=== PATIENT | female | born 1995 | race African-American/Black ===

== ENCOUNTER → 2020-02-21 | Outpatient (CLI) | payer OTHER | LOC: COL.RAD 14:00 | DX: N97.1 Female infertility of tubal origin (principal) | CPT/HCPCS: Q9967 ==

== ENCOUNTER 2021-08-17 07:11 | Inpatient (IN) | payer OTHER ==
[2021-08-17] VITALS (40 sets, daily range): BP systolic 96–156; BP diastolic 52–77; PULSE 60–115; TEMP 97.7–98.6
[2021-08-17] MEDS ORDERED: PRENATAL TABLET PO (07:33)
[2021-08-17] MEDS ORDERED: PEPCID 20MG TAB20 MG PO (07:33)
[2021-08-17] MEDS ORDERED: TYLENOL 325MG325 MG PO (07:34)
[2021-08-17 09:41] LABS: BASO % 0.2 % (0.0-2.0); EOS % 0.1 % (0.0-4.0); GRAN # 10.3 K/mm3 (1.4-6.5); GRAN % 79.6 % (42.2-75.2); HEMOGLOBIN 12.6 g/dl (12.5-16.0); LYMPH # 1.6 K/mm3 (1.2-3.4); LYMPH % 12.2 % (20.0-51.0); MEAN CELL VOLUME 93 fl (80.0-100.0); MEAN CORPUSCULAR HEMOGLOBIN 33 pg (27-31); MEAN CORPUSCULAR HGB CONC 36 g/dl (33.0-37.0); MEAN PLATELET VOLUME 12.3 fl (7.4-10.4); MONO % 7.4 % (1.7-9.3); PLATELET COUNT 158 K/mm3 (130-400); RED BLOOD COUNT 3.83 M/mm3 (4.10-5.30); REDCELL DISTRIBUTION WIDTH-CV 13.3 % (11.5-14.5)
[2021-08-17 09:42] LABS: HEMATOCRIT 35.5 % (37.0-47.0)
[2021-08-18 01:15] VITALS: BP 98/46; PULSE 81; TEMP 98.8
[2021-08-18 08:00] VITALS: BP 96/48; PULSE 84; TEMP 97.8
[2021-08-18] MEDS ORDERED: IBU600 MG PO (09:01)
[2021-08-18 16:00] VITALS: BP 103/59; PULSE 91; TEMP 98.2
[2021-08-18 20:00] VITALS: BP 108/46; PULSE 78; TEMP 97.9
[2021-08-19 09:11] VITALS: BP 102/63; PULSE 78; TEMP 98.2
== END 2021-08-19 14:00 | disposition home or self-care (01) | DRG 807 ==
LOC: LDRO 07:11 → OB 09:00 → LDR 09:00 → OB 21:00
PROVIDERS: ADMIT Obstetrics & Gynecology
PROC: 10E0XZZ Delivery of Products of Conception, External Approach (ICD-10-PCS; principal; 2021-08-17)
PROC: 0HQ9XZZ Repair Perineum Skin, External Approach (ICD-10-PCS; 2021-08-17)
DX: O99.824 Streptococcus B carrier state complicating childbirth (principal); Z37.0 Single live birth; O99.02 Anemia complicating childbirth; D64.9 Anemia, unspecified; O77.0 Labor and delivery complicated by meconium in amniotic fluid; O70.0 First degree perineal laceration during delivery; Z3A.40 40 weeks gestation of pregnancy; Z86.16 Personal history of COVID-19
CPT/HCPCS: J0595; J2540; J2590; J7120